=== PATIENT | male | born 1960 | race Caucasian/White ===

== ENCOUNTER 2016-08-23 11:44 | Emergency (ER) | payer MEDICAID, OTHER ==
[~2016-08-23] VITALS: Ht 167.6 cm; Wt 79.5 kg
[~2016-08-23 11:44] MED LIST: ENAL20TA PO; HYD25 PO
[2016-08-23 11:45] VITALS: Ht 167.6 cm; Wt 79.5 kg
--- NOTE | 2016-08-28 00:45 | ERA ---
ER Documentation Chief Complaint Date/Time DATE: 08/28/16 TIME: 00:40 Chief Complaint Wound check for Abdominal Hernia Surgery 08/19 HPI This is a 51-year-old male presenting with a chief complaint of wound check for post surgery hernia wound was performed 08/19/2016. Patient claims that the wound is still open. Patient also states that the area is painful. Has been prescribed Williams's but has not been prescribed any antibiotics. Patient has no other complaints. Denies discharge, numbness or tingling, skin color changes, or fever. Performing surgeon was Dr. Micah Lynne. ROS All systems reviewed and are negative except as per history of present illness. Medications Home Meds Active Scripts Enalapril Maleate* (Enalapril Maleate*) 20 Mg Tablet, 20 MG PO BID WITH MEALS, # 60 TAB Prov:LEROY MOTRON DO 05/03/15 Hydrochlorothiazide* (Hydrochlorothiazide*) 25 Mg Tab, 25 MG PO DAILY, #30 TAB Prov:ISIDRO CHRISTINA 04/15/15 Allergies Allergies: Coded Allergies: No Known Allergy (Unverified , 04/15/15) PMhx/Soc Medical and Surgical Hx: pt denies Medical Hx History of Surgery: Yes (ABDOMINAL SURGICAL SITE ) Anesthesia Reaction: No Hx Neurological Disorder: No Hx Respiratory Disorders: No Hx Cardiac Disorders: Yes (htn) Hx Psychiatric Problems: No Hx Miscellaneous Medical Probl: Yes (Diverticulitis) Hx Alcohol Use: No Hx Substance Use: No Hx Tobacco Use: No Physical Exam Physical Exam Const: Well-appearing 55-year-old male in no acute distress. Head: Atraumatic Eyes: Normal Conjunctiva ENT: Normal External Ears, Nose and Mouth. Neck: Full range of motion..~ No meningismus. Resp: Clear to auscultation bilaterally Cardio: Regular rate and rhythm, no murmurs Abd: Soft, non distended. Normal bowel sounds. Tenderness at the site of the wound. Skin: There is an approximately 10-15 cm horizontal wound from surgery. The wound is closed with subcutaneous sutures. There are no external sutures or adán noted. No discharge. Mild induration with no fluctuance. No petechiae or rashes. Back: No midline or flank tenderness Ext: No cyanosis, or edema Neur: Awake and alert Psych: Normal Mood and Affect Procedures/MDM 55-year-old male presenting 4 days status post hernia surgery that was performed over previous area of colostomy. Patient is complaining that the wound is not closed. I have my supervising physician evaluate the wound is well who agreed that there is no signs of infection and the wound is adequately closed. The patient will be advised to follow-up with surgeon for reevaluation of wound. Patient has verbally stated that he understands his current condition and plan of management. Patient's vitals are stable and his current condition is appropriate for discharge. Departure Diagnosis: Primary Impression: Encounter for wound re-check Condition: Stable Patient Instructions: Post Op Wound Check, Pain Additional Instructions: Follow up with your performing surgeon within the next 1-3 days for a more appropriate evaluation. Return the the emergency department immediately if symptoms worsen or change. Complete the medications given to you by the surgeon. BRITTANY SEN PA-C Aug 28, 2016 00:45
== END 2016-08-23 12:55 | disposition home or self-care (01) ==
LOC: FTE 11:44
DX: Z48.01 Encounter for change or removal of surgical wound dressing (principal)
CPT/HCPCS: 99281